=== PATIENT | male | born 1940 | race Caucasian/White ===

== ENCOUNTER 2022-09-16 14:04 | Outpatient (CLI) | payer MEDICARE ==
[2022-09-16 15:20] LABS: #Eosinphils 0.1 10x3/uL (0.0-0.5); #Monocytes 0.6 10x3/uL (0.0-1.1); #Neutrophils 3.9 10x3/uL (1.5-8.4); %Basophils 0.3 % (0.0-2.0); %Eosinophils 1.1 % (0.0-6.0); %Lymphocytes 24.7 % (18.0-47.0); %Monocytes 10.1 % (0.0-10.0); %Neutrophils 63.6 % (40.0-75.0); Hemoglobin 12.6 g/dL (13.5-17.5); Mean Corpuscular HGB CONC 35.2 g/dL (32.0-36.0); Mean Corpuscular Hemoglobin 33.4 pg (27.0-33.0); Mean Platelet Volume 11.7 fl (7.4-10.4); Platelet Count 197 10x3/uL (150-450); RBC Distribution Width 12.6 % (11.5-14.5); Red Blood Cell (RBC) Count 3.77 10x6/uL (4.32-5.72); White Blood Cell (WBC) Count 6.1 10x3/uL (3.5-10.5)
[2022-09-16 15:29] LABS: Anion Gap 15 mmol/L (10-20); BUN (Urea Nitrogen) 41 mg/dL (8.4-25.7); Calc. Creatinine Clearance 0 mL/min (70-130); Calcium 9.2 mg/dL (7.8-10.44); Carbon Dioxide 25 mmol/L (23-31); Chloride 103 mmol/L (98-107); Estimated GFR 39; Glucose 236 mg/dL (83-110); Potassium 4.7 mmol/L (3.5-5.1); Prothrombin Time 10.9 sec (9.5-12.1); Sodium 138 mmol/L (136-145)
== END 2022-09-16 14:05 | disposition home or self-care (01) ==
LOC: LABBT 14:04
PROVIDERS: ATTEND Orthopaedic Surgery
DX: Z01.818 Encounter for other preprocedural examination (principal); M17.11 Unilateral primary osteoarthritis, right knee
CPT/HCPCS: 80048; 85025; 85610; 87081; 93005; 93010

== ENCOUNTER 2023-02-24 10:21 | Outpatient (CLI) | payer MEDICARE | END 2023-02-24 10:22 | disposition home or self-care (01) | LOC: SCSRAD 10:21 | PROVIDERS: ATTEND Family Medicine | DX: R06.02 Shortness of breath (principal) | CPT/HCPCS: 71046 ==

== ENCOUNTER 2025-09-20 12:52 | Inpatient (IN) | payer OTHER ==
[2025-09-20] MEDS ORDERED: Ondansetron PF 4 MG/2 ML Vial IVP PRN (18:50)
[2025-09-20 19:06] VITALS: BMI 29.3
[2025-09-20] MEDS ORDERED: Glucagon 1 MG/ML KIT IM PRN (19:11)
[2025-09-20] MEDS: levETIRAcetam 500 MG (5 mL) VIAL SLOW IVP SCH (22:37)
[2025-09-20] MEDS: Famotidine/PF 20 mg/2ml Vial SLOW IVP SCH (22:37)
[2025-09-20] MEDS: cefTRIAXone\\ROCEPHIN 1 GM in Sodium Chloride 0.9% 100 ML IVPB SCH (22:40)
[2025-09-20] MEDS: Famotidine 20 MG TAB PO SCH (22:41)
[2025-09-21] MEDS ORDERED: hydrALAZINE 10 MG TAB PO SCH (03:00)
[2025-09-21] MEDS: hydrALAZINE 20 MG/ML VIAL SLOW IVP SCH (04:54)
[2025-09-21 05:12] LABS: #Basophils Less than 0.03 10x3/uL (0.0-0.2); #Eosinophils 0.03 10x3/uL (0.0-0.7); #Monocytes 0.52 10x3/uL (0.11-0.59); #Neutrophils 2.56 10x3/uL (1.40-6.50); %Basophils 0.2 % (0.0-1.0); %Eosinophils 0.7 % (0.0-10.0); %Lymphocytes 28.1 % (21.0-51.0); %Monocytes 11.9 % (0.0-10.0); %Neutrophils 58.6 % (42.0-75.0); Hematocrit 28.1 % (42.0-52.0); Hemoglobin 8.6 g/dL (14.0-18.0); Mean Corpuscular Hemoglobin 30.7 pg (27.0-31.0); Mean Corpuscular Volume 100.4 fL (78.0-98.0); Platelet Count 191 10x3/uL (130-400); Red Blood Cell (RBC) Count 2.80 mill/uL (4.70-6.10); White Blood Cell (WBC) Count 4.37 10x3/uL (4.8-10.8)
[2025-09-21 05:21] LABS: ALT (SGPT) Less than 7 U/L (Less than 45); AST (SGOT) 11 U/L (11-34); Albumin 2.3 g/dL (3.1-4.5); Alkaline Phosphatase 65 U/L (40-110); Anion Gap 12 mmol/L (10-20); BUN (Urea Nitrogen) 23 mg/dL (8.4-25.7); Bilirubin, Total 0.2 mg/dL (0.3-1.2); Calc. Creatinine Clearance 49 mL/min (70-130); Calcium 8.5 mg/dL (7.8-10.44); Carbon Dioxide 25 mmol/L (23-31); Chloride 113 mmol/L (98-107); Globulin 3.0 g/dL (2.4-3.5); Glucose 117 mg/dL (83-110); Potassium 3.7 mmol/L (3.5-5.1); Sodium 146 mmol/L (136-145)
[2025-09-21] MEDS: Ergocalciferol 1.25 MG(50,000 UNITS) CAP PO SCH (08:27)
[2025-09-21] MEDS: Furosemide 40 MG TAB PO SCH (08:27)
[2025-09-21] MEDS: Ferrous Gluconate 324 MG TAB PO SCH (08:27)
[2025-09-21] MEDS: Aspirin 81 mg Enteric Coated Tablet PO SCH (08:27)
[2025-09-21] MEDS: Carvedilol 25 MG TAB PO SCH (08:27)
[2025-09-21] MEDS: Albuterol 200 PUFF (6.7GM INHALER) INH SCH (08:30)
[2025-09-21] MEDS: Apixaban 5 MG TAB PO SCH ×3 (10:08→21:45)
[2025-09-21] MEDS ORDERED: Enoxaparin 100 MG (1 mL) SYRINGE SC SCH (10:30)
[2025-09-21 17:54] VITALS: BMI 29.3
[2025-09-21] MEDS ORDERED: Apixaban 5 MG TAB PO SCH (21:00)
[2025-09-21] MEDS: metFORMIN XR 500 MG ER.TAB PO SCH (21:44)
[2025-09-21] MEDS: QUEtiapine 25 MG TAB PO SCH ×2 (22:08→22:09)
[2025-09-22 05:27] LABS: #Basophils Less than 0.03 10x3/uL (0.0-0.2); #Eosinophils 0.16 10x3/uL (0.0-0.7); #Monocytes 0.48 10x3/uL (0.11-0.59); #Neutrophils 1.48 10x3/uL (1.40-6.50); %Basophils 0.2 % (0.0-1.0); %Eosinophils 3.9 % (0.0-10.0); %Lymphocytes 47.8 % (21.0-51.0); %Monocytes 11.7 % (0.0-10.0); %Neutrophils 35.9 % (42.0-75.0); Hematocrit 27.1 % (42.0-52.0); Hemoglobin 8.9 g/dL (14.0-18.0); Mean Corpuscular Hemoglobin 31.4 pg (27.0-31.0); Mean Corpuscular Volume 95.8 fL (78.0-98.0); Platelet Count 164 10x3/uL (130-400); Red Blood Cell (RBC) Count 2.83 mill/uL (4.70-6.10); White Blood Cell (WBC) Count 4.12 10x3/uL (4.8-10.8)
[2025-09-22 05:39] LABS: Anion Gap 15 mmol/L (10-20); BUN (Urea Nitrogen) 22 mg/dL (8.4-25.7); Calc. Creatinine Clearance 47 mL/min (70-130); Calcium 8.5 mg/dL (7.8-10.44); Carbon Dioxide 26 mmol/L (23-31); Chloride 108 mmol/L (98-107); Glucose 85 mg/dL (83-110); Potassium 3.8 mmol/L (3.5-5.1); Sodium 145 mmol/L (136-145)
[2025-09-23 05:59] LABS: #Basophils Less than 0.03 10x3/uL (0.0-0.2); #Eosinophils 0.10 10x3/uL (0.0-0.7); #Monocytes 0.50 10x3/uL (0.11-0.59); #Neutrophils 1.80 10x3/uL (1.40-6.50); %Basophils 0.5 % (0.0-1.0); %Eosinophils 2.7 % (0.0-10.0); %Lymphocytes 33.0 % (21.0-51.0); %Monocytes 13.7 % (0.0-10.0); %Neutrophils 49.6 % (42.0-75.0); Hematocrit 30.6 % (42.0-52.0); Hemoglobin 9.9 g/dL (14.0-18.0); Mean Corpuscular Hemoglobin 31.3 pg (27.0-31.0); Mean Corpuscular Volume 96.8 fL (78.0-98.0); Platelet Count 202 10x3/uL (130-400); Red Blood Cell (RBC) Count 3.16 mill/uL (4.70-6.10); White Blood Cell (WBC) Count 3.64 10x3/uL (4.8-10.8)
[2025-09-23 06:08] LABS: Anion Gap 18 mmol/L (10-20); BUN (Urea Nitrogen) 23 mg/dL (8.4-25.7); Calc. Creatinine Clearance 40 mL/min (70-130); Calcium 9.0 mg/dL (7.8-10.44); Carbon Dioxide 29 mmol/L (23-31); Chloride 104 mmol/L (98-107); Glucose 120 mg/dL (83-110); Potassium 4.4 mmol/L (3.5-5.1); Sodium 147 mmol/L (136-145)
[2025-09-23] MEDS: FLU (Fluad Triv) 25-26 (65UP)PF 45 MCG/0.5 ML Syringe IM ONE (09:22)
[2025-09-24] MEDS: QUEtiapine 25 MG TAB PO SCH ×2 (18:05→22:20)
[2025-09-25 04:34] LABS: #Basophils Less than 0.03 10x3/uL (0.0-0.2); #Eosinophils 0.08 10x3/uL (0.0-0.7); #Monocytes 0.63 10x3/uL (0.11-0.59); #Neutrophils 1.17 10x3/uL (1.40-6.50); %Basophils 0.5 % (0.0-1.0); %Eosinophils 2.1 % (0.0-10.0); %Lymphocytes 49.5 % (21.0-51.0); %Monocytes 16.6 % (0.0-10.0); %Neutrophils 30.8 % (42.0-75.0); Hematocrit 31.7 % (42.0-52.0); Hemoglobin 9.8 g/dL (14.0-18.0); Mean Corpuscular Hemoglobin 29.5 pg (27.0-31.0); Mean Corpuscular Volume 95.5 fL (78.0-98.0); Platelet Count 197 10x3/uL (130-400); Red Blood Cell (RBC) Count 3.32 mill/uL (4.70-6.10); White Blood Cell (WBC) Count 3.80 10x3/uL (4.8-10.8)
[2025-09-25 04:45] LABS: Anion Gap 13 mmol/L (10-20); BUN (Urea Nitrogen) 18 mg/dL (8.4-25.7); Calc. Creatinine Clearance 38 mL/min (70-130); Calcium 8.6 mg/dL (7.8-10.44); Carbon Dioxide 27 mmol/L (23-31); Chloride 107 mmol/L (98-107); Glucose 73 mg/dL (83-110); Potassium 3.5 mmol/L (3.5-5.1); Sodium 143 mmol/L (136-145)
[2025-09-25] MEDS: Dextrose 50% Abboject 50 ML SYRINGE SLOW IVP PRN (23:21)
[2025-09-26] MEDS: hydrALAZINE 20 MG/ML VIAL SLOW IVP SCH (03:21)
[2025-09-26] MEDS: hydrALAZINE 20 MG/ML VIAL SLOW IVP PRN (18:22)
[2025-09-26] MEDS: Enoxaparin 100 MG (1 mL) SYRINGE SC SCH (20:35)
[2025-09-27] MEDS: Albuterol 200 PUFF (6.7GM INHALER) INH SCH (12:37)
[2025-09-28 05:37] LABS: Hematocrit 32.0 % (42.0-52.0); Hemoglobin 10.2 g/dL (14.0-18.0); Platelet Count 164 10x3/uL (130-400)
[2025-09-28 06:12] LABS: Anion Gap 17 mmol/L (10-20); BUN (Urea Nitrogen) 24 mg/dL (8.4-25.7); Calc. Creatinine Clearance 47 mL/min (70-130); Calcium 8.9 mg/dL (7.8-10.44); Carbon Dioxide 23 mmol/L (23-31); Chloride 116 mmol/L (98-107); Glucose 98 mg/dL (83-110); Potassium 4.0 mmol/L (3.5-5.1); Sodium 152 mmol/L (136-145)
[2025-09-28 08:25] LABS: Anion Gap 15 mmol/L (10-20); BUN (Urea Nitrogen) 24 mg/dL (8.4-25.7); Calc. Creatinine Clearance 48 mL/min (70-130); Calcium 9.0 mg/dL (7.8-10.44); Carbon Dioxide 27 mmol/L (23-31); Chloride 115 mmol/L (98-107); Glucose 93 mg/dL (83-110); Potassium 4.1 mmol/L (3.5-5.1); Sodium 153 mmol/L (136-145)
[2025-09-28] MEDS ORDERED: Apixaban 5 MG TAB PO SCH ×2 (09:00)
[2025-09-28] MEDS: Senokot S 8.6-50 MG TAB PO SCH (21:54)
[2025-09-28] MEDS: Cyanocobalamin (Vitamin B-12) 1,000 MCG TAB PO SCH (21:54)
[2025-09-29 05:13] LABS: #Basophils Less than 0.03 10x3/uL (0.0-0.2); #Eosinophils 0.07 10x3/uL (0.0-0.7); #Monocytes 0.52 10x3/uL (0.11-0.59); #Neutrophils 1.22 10x3/uL (1.40-6.50); %Basophils 0.6 % (0.0-1.0); %Eosinophils 1.9 % (0.0-10.0); %Lymphocytes 48.3 % (21.0-51.0); %Monocytes 14.4 % (0.0-10.0); %Neutrophils 33.7 % (42.0-75.0); Hematocrit 30.4 % (42.0-52.0); Hemoglobin 9.8 g/dL (14.0-18.0); Mean Corpuscular Hemoglobin 30.2 pg (27.0-31.0); Mean Corpuscular Volume 93.5 fL (78.0-98.0); Platelet Count 153 10x3/uL (130-400); Red Blood Cell (RBC) Count 3.25 mill/uL (4.70-6.10); White Blood Cell (WBC) Count 3.62 10x3/uL (4.8-10.8)
[2025-09-29 05:29] LABS: Anion Gap 14 mmol/L (10-20); BUN (Urea Nitrogen) 33 mg/dL (8.4-25.7); Calc. Creatinine Clearance 42 mL/min (70-130); Calcium 8.8 mg/dL (7.8-10.44); Carbon Dioxide 27 mmol/L (23-31); Chloride 110 mmol/L (98-107); Glucose 128 mg/dL (83-110); Magnesium 2.2 mg/dL (1.6-2.6); Potassium 3.7 mmol/L (3.5-5.1); Sodium 147 mmol/L (136-145)
[2025-09-30 05:07] LABS: #Basophils Less than 0.03 10x3/uL (0.0-0.2); #Eosinophils 0.08 10x3/uL (0.0-0.7); #Monocytes 0.53 10x3/uL (0.11-0.59); #Neutrophils 1.35 10x3/uL (1.40-6.50); %Basophils 0.3 % (0.0-1.0); %Eosinophils 2.3 % (0.0-10.0); %Lymphocytes 42.9 % (21.0-51.0); %Monocytes 15.1 % (0.0-10.0); %Neutrophils 38.3 % (42.0-75.0); Hematocrit 30.2 % (42.0-52.0); Hemoglobin 9.5 g/dL (14.0-18.0); Mean Corpuscular Hemoglobin 30.3 pg (27.0-31.0); Mean Corpuscular Volume 96.2 fL (78.0-98.0); Platelet Count 147 10x3/uL (130-400); Red Blood Cell (RBC) Count 3.14 mill/uL (4.70-6.10); White Blood Cell (WBC) Count 3.52 10x3/uL (4.8-10.8)
[2025-09-30 05:28] LABS: Anion Gap 12 mmol/L (10-20); BUN (Urea Nitrogen) 35 mg/dL (8.4-25.7); Calc. Creatinine Clearance 46 mL/min (70-130); Calcium 8.2 mg/dL (7.8-10.44); Carbon Dioxide 27 mmol/L (23-31); Chloride 109 mmol/L (98-107); Glucose 146 mg/dL (83-110); Potassium 3.7 mmol/L (3.5-5.1); Sodium 144 mmol/L (136-145)
[2025-09-30] MEDS: levETIRAcetam 500 MG TAB PO SCH (09:35)
[2025-09-30] MEDS: Pantoprazole 40 MG DR.TAB PO SCH (09:36)
[2025-09-30] MEDS: levETIRAcetam 500 mg/5 ml Oral Solution PO SCH (21:50)
[2025-10-01 06:13] LABS: Anion Gap 10 mmol/L (10-20); BUN (Urea Nitrogen) 38 mg/dL (8.4-25.7); Calc. Creatinine Clearance 56 mL/min (70-130); Calcium 8.2 mg/dL (7.8-10.44); Carbon Dioxide 26 mmol/L (23-31); Chloride 109 mmol/L (98-107); Glucose 131 mg/dL (83-110); Potassium 4.3 mmol/L (3.5-5.1); Sodium 141 mmol/L (136-145)
[2025-10-01 06:47] LABS: #Basophils Less than 0.03 10x3/uL (0.0-0.2); #Eosinophils 0.10 10x3/uL (0.0-0.7); #Monocytes 0.66 10x3/uL (0.11-0.59); #Neutrophils 1.96 10x3/uL (1.40-6.50); %Basophils 0.4 % (0.0-1.0); %Eosinophils 2.1 % (0.0-10.0); %Lymphocytes 39.9 % (21.0-51.0); %Monocytes 14.2 % (0.0-10.0); %Neutrophils 42.1 % (42.0-75.0); Hematocrit 28.8 % (42.0-52.0); Hemoglobin 9.4 g/dL (14.0-18.0); Mean Corpuscular Hemoglobin 32.1 pg (27.0-31.0); Mean Corpuscular Volume 98.3 fL (78.0-98.0); Platelet Count 126 10x3/uL (130-400); Red Blood Cell (RBC) Count 2.93 mill/uL (4.70-6.10); White Blood Cell (WBC) Count 4.66 10x3/uL (4.8-10.8)
[2025-10-01] MEDS: levETIRAcetam 500 mg/5 ml Oral Solution PO SCH (09:58)
[2025-10-02] MEDS ORDERED: Lidocaine 1% (PF) 30 ML VIAL ONE (07:57)
[2025-10-02] MEDS ORDERED: Iopamidol 370 76% 100 ML VIAL ONE (13:50)
[2025-10-03] MEDS: Aspirin Chewable 81 MG TAB PO SCH (09:31)
[2025-10-03] MEDS: Albuterol 200 PUFF INH INH SCH (13:40)
[2025-10-06] MEDS: Lansoprazole 30 MG/10 ML UDCUP PO SCH (08:43)
[2025-10-06] MEDS ORDERED: Acetaminophen 325 MG TAB PO PRN (20:07)
[2025-10-06] MEDS ORDERED: Melatonin 3 MG TAB PO PRN (20:07)
[2025-10-07 09:39] VITALS: BP 157/64; TEMP 98.4
== END 2025-10-07 15:30 | disposition hospice, home (50) | DRG 689 ==
LOC: 2NO 18:08 → T4-B 09-30 12:58
PROVIDERS: ADMIT Internal Medicine; ATTEND Hospitalist
PROC: 3E03329 Introduction of Other Anti-infective into Peripheral Vein, Percutaneous Approach (ICD-10-PCS; 2025-09-20)
PROC: 06H03DZ Insertion of Intraluminal Device into Inferior Vena Cava, Percutaneous Approach (ICD-10-PCS; principal; 2025-10-02)
DX: N39.0 Urinary tract infection, site not specified (principal); G93.41 Metabolic encephalopathy; I62.03 Nontraumatic chronic subdural hemorrhage; I21.A1 Myocardial infarction type 2; I82.402 Acute embolism and thrombosis of unspecified deep veins of left lower extremity; E87.0 Hyperosmolality and hypernatremia; Z66 Do not resuscitate; I25.10 Atherosclerotic heart disease of native coronary artery without angina pectoris; E11.22 Type 2 diabetes mellitus with diabetic chronic kidney disease; E78.5 Hyperlipidemia, unspecified; I12.9 Hypertensive chronic kidney disease with stage 1 through stage 4 chronic kidney disease, or unspecified chronic kidney disease; Z87.891 Personal history of nicotine dependence; Z79.899 Other long term (current) drug therapy; N18.30 Chronic kidney disease, stage 3 unspecified; E11.40 Type 2 diabetes mellitus with diabetic neuropathy, unspecified; I87.8 Other specified disorders of veins; R33.9 Retention of urine, unspecified; Z79.01 Long term (current) use of anticoagulants; B96.89 Other specified bacterial agents as the cause of diseases classified elsewhere; Z51.5 Encounter for palliative care; D63.1 Anemia in chronic kidney disease
CPT/HCPCS: 36415; 36416; 37191; 74176; 80048; 80053; 83735; 84100; 85014; 85018; 85025; 85049; 93306; 93970; C1769; C1880; C1894; J0360; J0696; J1308; J1650; J1815; J1953; J2003; J2185; J2543; J7042; J7070; J7120; J7999; Q9967